=== PATIENT | male | born 1940 | race Caucasian/White ===

== ENCOUNTER 2016-06-05 06:22 | Day surgery (SDC) | payer MEDICARE, OTHER ==
[~2016-06-05] VITALS: Ht 182.9 cm; Wt 67.6 kg
[~2016-06-05 06:22] MED LIST: Lactated Ringer's 1,000 ML IV SCH; NITR100 PO
[2016-06-05] MEDS ORDERED: Ketamine 10 mg/mL 20 mL Inj ONE (06:23)
[2016-06-05] MEDS ORDERED: Dexamethasone 4 mg/mL Inj ONE (06:23)
[2016-06-05] MEDS ORDERED: Ondansetron 2 mg/mL 2 mL Inj ONE (06:23)
[2016-06-05 07:32] VITALS: BP 173/92; PULSE 59; RESP 18; O2SAT 97
[2016-06-05] MEDS ORDERED: Lactated Ringer's 1,000 ML IV ONE (07:53)
[2016-06-05] MEDS ORDERED: Lactated Ringer's 500 ML IV PRN (07:54)
[2016-06-05] MEDS ORDERED: Lactated Ringer's 1,000 ML IV SCH (07:54)
--- NOTE | 2016-06-05 07:54 | PCM.HPANE ---
Patient Data Date of Service: Jun 05, 2016 Surgeon Admitting Provider: Attending Provider:Zayra Del Cid MD Primary Care Physician:Javier Amanda MD Other Provider:Bob Weiss Anesthesia Reason for Visit Bladder Stone Ht/WT & BMI Height (Feet): 6 Height (Inches): 0 Weight (Kilograms): 67.59 Body Mass Index 20.00 Allergies Coded Allergies: Penicillins (Verified Allergy, Unknown, UNKNOWN, 06/04/16) Past Anesthesia History Anesthesia History: Denies:: Fam Anesthesia Reaction, Fam Malignant Hypertherm Diabetes History Hx Diabetes?: No MRSA MRSA: No Medications Home Meds Incl Beta Megan: No Reported Medications Nitrofurantoin Monohyd/M-Cryst (MacroBid)100 Mg [id number] Mg PO BID Ref 0 06/04/16 History History of ENT Problems?: No Hx of Heart Problems?: Yes Cardiovascular History: Positive for:: Edema (PEDAL) Denies:: Heart Murmur Hypertension Hx of Respiratory Problem?: Yes Respiratory History: Positive for:: COPD (CXR SHOWS NO ACUTE DISEASE BUT CHRONIC HYPERINFLATION/SCARRING) Denies:: Use of C-PAP Machine Hx Neurologic Problems?: No Hx of GI Problems?: No Hx of Problems?: Yes Genitourinary History: Positive for:: Urinary Tract Infection (HX OF UTI'S ( CURRENTLY ON MACROBID)/URINARY RETENTION) Other Pertinent History: BLADDER STONE=CURRENT PROBLEM Male Hx: Denies:: Prostate Problems Scrotal Mass Testicular Surgery Skin History: Denies:: History Skin Disorders? Pressure Ulcers Hx Musculoskeletal Problems?: Yes Musculoskeletal History: Positive for:: Musculoskeletal Trauma (C/OF LT HIP PAIN) Hx of Psycho/Social Problems?: No Hx Surgeries?: No Hx Any Other Health Problems?: No Other History: Denies:: Cancer Hospitalization Thyroid Disease History Blood Transfusions: Denies:: Blood Transfusions Hx Diabetes: No Hx Alcohol Use: YesAlcoholic Drinks Per Day: 2/DAYHave You Smoked inLast 12 mo : No Stop/Bang S-Snoring: Do You Snore Loudly: No T-Tired: feel tired, fatigued: No O-Obsered: Observed not breath: No P-Blood Pressure: treated: No B- Body Mass Index > 35 kg/m2: No A- Age over 50: Yes N- Neck Large Circumference: No G- Gender Male: Yes CASEY Total Score: 2 CASEY Risk Assessment: Low Risk, <3 Yes Risk Assessment Category Category 1A: Patient has history of documented sleep apnea, and HAS NOT received any narcotic, sedative or anesthesia administration during this stay. Category 1B: Patient has history of documented sleep apnea, and HAS received any narcotic , sedative or anesthesia administration during this stay Category 2: Patient has SUSPECTED Obstructive Sleep Apnea, and HAS received any narcotic , sedative or anesthesia administration during this stay. Category 3: Patient has SUSPECTED Obstructive Sleep Apnea and HAS NOT received narcotic, sedative or anesthesia administration during this stay. Category 4: Outpatient in Procedural Areas with known sleep apnea or who screen positive for High Risk via the STOP/BANG questionnaire. Exam Exam Vital Signs Vital Signs Date Time Temp Pulse Resp B/P Pulse Ox O2 Delivery O2 Flow Rate FiO2 06/05/16 07:32 36.3 59 18 173/92 97 Room Air General Appearance: Alert, Oriented X3, Cooperative, No Acute Distress HEENT/AIRWAY: MP 2, Other (upper dentures) Lungs: Clear to Auscultation, Normal Air Movement Heart: Exam Unremarkable, Regular Rate/Rhythm, No Murmurs/Rubs/Gallops Plan Impression Patient chart reviewed, patient interviewed and anesthestic plan with risks, benefits, and alternatives discussed, and informed consent obtained. NPO Status: 3@1600, WATER @mn ASA Physical Status: ASA1 Plus Emergency Anesthetic Plan: GA Bene/Risks/Altern/Consents: Yes HP Complete Prior to Induction: Yes Behzad Fong MD Jun 05, 2016 07:53
[2016-06-05] MEDS ORDERED: Ondansetron 2 mg/mL 2 mL Inj IVPUSH PRN (07:55)
[2016-06-05] MEDS ORDERED: HYDROmorphone 1 mg/mL Inj IVPUSH PRN (07:55)
[2016-06-05] MEDS ORDERED: Labetalol 5 mg/mL 4 mL Inj IV PRN (07:55)
[2016-06-05] MEDS ORDERED: EPHEDrine Sulfate 50 mg/mL Inj IVPUSH PRN (07:55)
[2016-06-05] MEDS ORDERED: Phenylephrine 10,000 mCg/mL Inj IVPUSH PRN (07:55)
[2016-06-05] MEDS ORDERED: hydrALAZINE 20 mg/mL Inj IVPUSH PRN (07:55)
[2016-06-05] MEDS ORDERED: MetoCLOpramide 5 mg/mL 2 mL Inj IVPUSH PRN (07:55)
[2016-06-05] MEDS ORDERED: fentaNYL-PF 50 mCg/mL 2 mL Inj IVPUSH PRN (07:55)
[2016-06-05] MEDS ORDERED: Dexamethasone 4 mg/mL Inj IVPUSH PRN (07:55)
[2016-06-05] MEDS ORDERED: Gentamicin 40 mg/mL 2 mL Inj INJ ONE (08:40)
[2016-06-05] MEDS ORDERED: Belladonna Alk-Opium 60 mg Rectal Suppository RECTAL ONE (08:46)
[2016-06-05 09:20] VITALS: BP 163/83; PULSE 73; RESP 14; O2SAT 97
[2016-06-05] MEDS ORDERED: Ondansetron 8 mg ODT Tablet PO PRN (09:20)
[2016-06-05] MEDS ORDERED: HYDROcodone-APAP 5-325 mg Tablet PO PRN (09:20)
[2016-06-05 09:25] VITALS: BP 163/86; PULSE 69; RESP 14; O2SAT 97
[2016-06-05 09:31] VITALS: BP 162/93; PULSE 65; RESP 11; O2SAT 98
[2016-06-05 09:35] VITALS: BP 160/95; PULSE 59; RESP 14; O2SAT 99
[2016-06-05 09:39] VITALS: BP 164/90; PULSE 65; RESP 16; O2SAT 99
--- NOTE | 2016-06-05 10:54 | PCM.ANEP1 ---
Post Anesthesia Phase 1 PACU Phase 1 Assessment Date of Service: Jun 05, 2016 Vital Signs Vital Signs Date Time Temp Pulse Resp B/P Pulse Ox O2 Delivery O2 Flow Rate FiO2 06/05/16 09:39 65 16 164/90 99 Room Air 06/05/16 09:35 36.0 59 14 160/95 99 Room Air 06/05/16 09:31 65 11 162/93 98 Room Air 06/05/16 09:25 69 14 163/86 97 Room Air 06/05/16 09:20 36.3 73 14 163/83 97 Room Air 06/05/16 07:32 36.3 59 18 173/92 97 Room Air Anesthetic Administered: GA Level of Alertness: Sleepy, easy to arouse Pain: No Nausea or Vomiting: No Oxygen Delivery: Room Air Lungs: Clear to Auscultation, Normal Air Movement Behzad Fong MD Jun 05, 2016 10:54
--- NOTE | 2016-06-05 10:54 | PCM.ANEP2 ---
Post Anesthesia Evaluation ASA/CMS Post Anesthesia VS in Patient's Normal Range?: Yes Resp Stable; Airway Patent?: Yes CV Function & Hydration Stable: Yes Mental Status Recovered?: Yes Pain control Satisfactory?: Yes N/V Control Satisfactory?: Yes Behzad Fong MD Jun 05, 2016 10:54
--- NOTE | 2016-06-05 11:00 | OP ---
[address] [address] OPERATIVE REPORT PATIENT: SYDNIE CHEN : 1940 MR#: [id number] ADMIT: 06/05/2016 JOB ID: [id number] DATE OF SURGERY: 06/05/2016 SURGEON: Zayra Del Cid MD. PREOPERATIVE DIAGNOSIS(ES): Bladder calculus. POSTOPERATIVE DIAGNOSIS(ES): Bladder calculus. PROCEDURE: 1. Cystoscopy. 2. Laser litholapaxy. ANESTHESIA: General anesthetic. SPECIMEN: Stone 3 cm x 2 cm x 1 cm. DESCRIPTION OF PROCEDURE: Under general anesthetic, the patient was placed in lithotomy position. Genitalia prepped and draped in a sterile manner. A [place] continuous-flow cystoscope was introduced into the bladder. The calculus was present. Prostatic urethra had been well resected. Using a 960 micron laser fiber at a 2.0 joule setting, the stone was fragmented. The fragments were irrigated free from the bladder. The patient tolerated the procedure well and left the operating room in good condition.
[2016-06-05] MEDS ORDERED: Belladonna Alk-Opium 60 mg Rectal Suppository RECTAL SCH (20:30)
[2016-06-11 15:08] LABS: Stone Color Tan (.)
== END 2016-06-05 23:59 | disposition home or self-care (01) ==
LOC: SAS 06:22
PROVIDERS: ATTEND Urology
DX: N21.0 Calculus in bladder (principal); Z87.440 Personal history of urinary (tract) infections; Z87.891 Personal history of nicotine dependence
CPT/HCPCS: 52317; 82360; J1100; J1580; J2405; J7120